=== PATIENT | male | born 1945 | race Hispanic/Latino ===

== ENCOUNTER 2018-06-05 14:40 | Emergency (ER) | payer BC, MEDICARE ==
[2018-06-05 14:43] VITALS: BMI 40.8
[2018-06-05] MEDS ORDERED: Lidocaine 1% Inj (20ml) ONE (14:59)
[2018-06-05] MEDS ORDERED: TDAP Vaccine 0.5 mL Syr IM ONE (15:04)
[2018-06-05] MEDS ORDERED: Lidocaine 1% Inj (20ml) IJ STA (15:04)
[2018-06-05 15:17] VITALS: RESP 18; TEMP 98.3
[2018-06-05 16:05] VITALS: BP 140/71; PULSE 70; O2SAT 98
--- NOTE | 2018-06-05 16:41 | ED PDOC ---
Arrival/HPI <Brinda Wolf - Last Filed: 06/05/18 16:35> <Aj Oliveira DO - Last Filed: 06/05/18 21:36> - General Chief Complaint: Trauma Time Seen by Provider: 06/05/18 15:04 - History of Present Illness Narrative History of Present Illness (Text): 72 year old male presents with 5 cm laceration on left elbow that he suffered today at work. 06/05/18 16:35 (Brinda Wolf) Past Medical History - Provider Review Nursing Documentation Reviewed: Yes - Cardiac Hx Cardiac Disorders: Yes Hx Hypertension: Yes - Pulmonary Hx Respiratory Disorders: No - Neurological Hx Neurological Disorder: No - HEENT Hx HEENT Disorder: No - Renal Hx Renal Disorder: No - Endocrine/Metabolic Hx Endocrine Disorders: Yes Hx Diabetes Mellitus Type 2: Yes - Hematological/Oncological Hx Blood Disorders: No - Integumentary Hx Dermatological Disorder: No - Psychiatric Hx Substance Use: No - Surgical History Hx Cholecystectomy: Yes Other/Comment: abd surgery - Anesthesia Hx Anesthesia: Yes Hx Anesthesia Reactions: No Hx Malignant Hyperthermia: No <Brinda Wolf - Last Filed: 06/05/18 16:35> Family/Social History - Physician Review Nursing Documentation Reviewed: Yes Family/Social History: Unknown Family HX Smoking Status: Never Smoked Hx Alcohol Use: No Hx Substance Use: No <Brinda Wolf - Last Filed: 06/05/18 16:35> Allergies/Home Meds <Brinda Wolf - Last Filed: 06/05/18 16:35> <Aj Oliveira DO - Last Filed: 06/05/18 21:36> Allergies/Adverse Reactions: Allergies No Known Allergies Allergy (Verified 06/05/18 14:43) Home Medications: Home Meds Medication Instructions Recorded Confirmed Atorvastatin [Lipitor] 40 mg PO DIN 06/05/18 06/05/18 Insulin Glargine, Recombina 50 unit SC DIN 06/05/18 06/05/18 [Lantus] Insulin Human Regular [HumuLIN R] 20 units SC AC 06/05/18 06/05/18 Review of Systems - Physician Review All systems were reviewed & negative as marked: Yes - Review of Systems Constitutional: Normal Eyes: Normal Respiratory: Normal Cardiovascular: Normal Gastrointestinal: Normal Musculoskeletal: Normal Skin: Normal Neurological: Normal <Brinda Wolf - Last Filed: 06/05/18 16:35> Physical Exam Vital Signs Reviewed: Yes Temperature: Afebrile Blood Pressure: Hypertensive Pulse: Regular Respiratory Rate: Normal Appearance: Positive for: Well-Appearing Pain Distress: Mild Mental Status: Positive for: Alert and Oriented X 3 - Systems Exam Head: Present: Atraumatic Pupils: Present: PERRL Extroacular Muscles: Present: EOMI Conjunctiva: Present: Normal Nose (External): Present: Atraumatic Neck: Present: Normal Range of Motion Respiratory/Chest: Present: Clear to Auscultation Cardiovascular: Present: Regular Rate and Rhythm Abdomen: Present: Normal Bowel Sounds Upper Extremity: Present: Normal Inspection, Normal ROM, NORMAL PULSES Lower Extremity: Present: Normal Inspection, NORMAL PULSES, Normal ROM Neurological: Present: GCS=15, CN II-XII Intact, Speech Normal, Motor Func Grossly Intact Skin: Present: Laceration (on left forearm near left elbow) Psychiatric: Present: Alert, Oriented x 3, Normal Insight, Normal Concentration <Brinda Wolf - Last Filed: 06/05/18 16:35> <Aj Oliveira DO - Last Filed: 06/05/18 21:36> Vital Signs Temp Pulse Resp BP Pulse Ox 06/05/18 16:04 98 06/05/18 16:03 70 18 140/71 98 06/05/18 15:42 72 18 145/69 99 06/05/18 15:00 98.3 F 75 18 147/58 L 97 Medical Decision Making <Brinda Wolf - Last Filed: 06/05/18 16:35> <Aj Oliveira DO - Last Filed: 06/05/18 21:36> ED Course and Treatment: Impression: 72 year old male presents with 5 cm laceration on left arm. Assessment: 5 cm laceration Plan: 5 cm laceration had 4 interrupted 4.0 stitches placed. 06/05/18 16:38 (Brinda Wolf) - Medication Orders Current Medication Orders: Discontinued Medications Lidocaine HCl (Lidocaine 1% (20ml)) 10 ml IJ STAT STA Stop: 06/05/18 15:05 Tetanus/Reduced Diphtheria/Acell Pertussis (Boostrix Vaccine Inj) 0.5 ml IM .ONCE ONE Stop: 06/05/18 15:05 Last Admin: 06/05/18 15:56 Dose: 0.5 ml Immunization Registry Document 06/05/18 15:56 SF (Rec: 06/05/18 15:56 SF [id number]) Immunization Registry Consent Date 06/05/18 - Procedure PROCEDURE NOTE (Text): The appropriate timeout was taken. The area was prepped and draped in the usual sterile fashion. Local anesthesia was achieved using 7cc of Lidocaine 1% / without epinephrine. The wound was copiously irrigated with betadine. 4 4-0 Nylon interrupted sutures were placed. Estimated blood loss was less than 0.5 mL. A dressing was applied to the area and anticipatory guidance, as well as standard post-procedure care, was explained. Return precautions are given. The patient tolerated the procedure well without complications. Follow-up visit set for suture removal and evaluation of the laceration. 06/05/18 16:41 (Brinda Wolf) - PA / [employer] / Resident Statement JEAN CARLOS has reviewed & agrees with the documentation as recorded. JEAN CARLOS has examined the patient and agrees with the treatment plan. <Brinda Wolf - Last Filed: 06/05/18 16:35> Disposition/Present on Arrival - Present on Arrival Any Indicators Present on Arrival: No History of DVT/PE: No History of Uncontrolled Diabetes: No Urinary Catheter: No History of Decub. Ulcer: No History Surgical Site Infection Following: None - Disposition Have Diagnosis and Disposition been Completed?: Yes Disposition Time: 16:00 Patient Plan: Discharge <Brinda Wolf - Last Filed: 06/05/18 16:35> - Disposition Disposition Time: 15:30 <Aj Oliveira DO - Last Filed: 06/05/18 21:36> - Disposition Diagnosis: Forearm laceration Disposition: HOME/ ROUTINE Condition: IMPROVED Discharge Instructions (ExitCare): Laceration Repair With Stitches (DC) Additional Instructions: BEVERLY CANO, thank you for letting us take care of you today. The emergency medical care you received today was directed at your acute symptoms. If you were prescribed any medication, please fill it and take as directed. It may take several days for your symptoms to resolve. Return to the Emergency Department if your symptoms worsen, do not improve, or if you have any other problems. Please contact your doctor or call one of the physicians/clinics you have been referred to that are listed on the Patient Visit Information form that is included in your discharge packet. Bring any paperwork you were given at discharge with you along with any medications you are taking to your follow up visit. Our treatment cannot replace ongoing medical care by a primary care provider outside of the emergency department. Thank you for allowing the [facility] team to be part of your care today. Keep area clean and dry at all times. Follow up with your primary doctor in 7 days for suture removal. Prescriptions: Cephalexin [Keflex] 500 mg PO TID #15 capsule Referrals: Tempol[facility] Crispin Marshall, [Non-Staff] - Follow up with primary Forms: [employer] (K[place]z)
== END 2018-06-05 16:04 | disposition home or self-care (01) ==
LOC: ED 14:40
DX: S51.812A Laceration without foreign body of left forearm, initial encounter (principal); X58.XXXA Exposure to other specified factors, initial encounter; Y99.0 Civilian activity done for income or pay; Z23 Encounter for immunization; E11.9 Type 2 diabetes mellitus without complications; I10 Essential (primary) hypertension